=== PATIENT | female | born 1940 ===

== ENCOUNTER 2016-05-19 08:09 | Day surgery (SDC) | payer MEDICARE ==
[2016-05-16 08:28] VITALS: BMI 22.1
[~2016-05-19 08:09] MED LIST: HEPARIN-NS 5,000 UNITS/500 ML 500 ML IV ONE; HYDROmorphone 0.5 mg/0.5 ml ISec ONE; Midazolam 2 MG/2 ML VIAL ONE; Propofol 10 mg/ml Inj (20 ML) ONE; ceFAZolin IV 1 gm in Dextrose 50 ML IVPB ONE
[2016-05-19 09:40] LABS: CALCIUM 8.8 mg/dl (8.6-10.4)
[2016-05-19] MEDS ORDERED: Lidocaine 2% Inj (20ml) ONE (10:11)
[2016-05-19] MEDS ORDERED: Bupivacaine HCl 0.5% PF (10 ml) Inj ONE (10:11)
[2016-05-19] MEDS ORDERED: Sodium Chloride 0.9% 500 ML IV ONE ×3 (10:25→11:55)
[2016-05-19] MEDS ORDERED: Midazolam 2 MG/2 ML VIAL ONE (10:26)
[2016-05-19] MEDS ORDERED: Lidocaine 1% Inj (20ml) ONE (10:37)
[2016-05-19] MEDS ORDERED: Propofol 10 mg/ml Inj (20 ML) ONE (11:04)
[2016-05-19] MEDS ORDERED: Labetalol 25mg/5ml Syringe IVP PRN (12:04)
[2016-05-19] MEDS ORDERED: HYDROmorphone 0.5 mg/0.5 ml ISec IVP PRN (12:04)
--- NOTE | 2016-05-19 12:12 | PCM.SURG1 ---
Surgeon's Initial Post Op Note - Surgeon's Notes Surgeon: Casandra Testing Lead: PGY3 Type of Anesthesia: Block Regional, IV Sedation Pre-Operative Diagnosis: ESRD Operative Findings: see op note Post-Operative Diagnosis: ESRD Operation Performed: L arm AVF creation Specimen/Specimens Removed: N/A Estimated Blood Loss: EBL {In ML}: 30 Blood Products Given: N/A Drains Used: No Drains Post-Op Condition: Good Date of Surgery/Procedure: 05/19/16 Time of Surgery/Procedure: 10:40
[2016-05-19] MEDS ORDERED: Oxycodone/Acetaminophen 5/325 mg Tab PO ONE ×2 (12:13→13:45)
[2016-05-19 15:58] VITALS: BP 135/60; PULSE 72; RESP 16; TEMP 97.1; O2SAT 97
--- NOTE | 2016-05-20 07:58 | OP ---
PROCEDURE DATE: 05/19/2016 PREOPERATIVE DIAGNOSIS: Renal failure. POSTOPERATIVE DIAGNOSIS: Renal failure. PROCEDURE CARRIED OUT: Brachiobasilic fistula, left elbow. SURGEON: Juancarlos Guajardo Jr., MD ENROBING MACHINE FEEDER: Dr. Green. ANESTHESIOLOGIST: Dr. Pinon, supraclavicular block. The patient is a 76-year-old woman recently started on dialysis. OPERATIVE FINDINGS: Initially, it appeared that she had a good cephalic vein at the wrist. However, approximately 3 inches above the wrist, the cephalic vein was occluded at this point. There was no upper arm cephalic vein and the only available vessel for a fistula in the left arm was the basilic v ein, which was of good size and caliber. PROCEDURE: The patient was a supraclavicular block. The vein was marked on the skin with ultrasound guidance. The adjacent artery was palpated. An incision was made between these, the vein mobilized and an end-to-side anastomosis in a spatulated fashion was carried out using loupe magnification and heparin anticoagulation. There was excellent flow through the fistula and there was good pulse at t he wrist at the end of the procedure. Blood loss was approximately 10 mL. Heparin was not reversed at the end. OPERATION CARRIED OUT: Brachiobasilic fistula, left elbow. There is a strong possibility that this may require mobilization in the future to the surface if it cannot be accessed due to the size of her arms. Juancarlos Guajardo Jr., MD cc:Jacob Roberson MD; Kei Levi MD; Kyara Blank MD 56 TT: 05/19/2016 12:27:28 en
== END 2016-05-19 15:25 | disposition home or self-care (01) ==
LOC: C.SDS 08:09
PROVIDERS: ATTEND Surgery Vascular Surgery
DX: N18.6 End stage renal disease (principal); Z99.2 Dependence on renal dialysis
CPT/HCPCS: 36415; 36821; 80048; J0690; J1644; J2250; J2704; J3010; J7030; J7040

== ENCOUNTER 2016-09-22 06:50 | Day surgery (SDC) | payer MEDICARE ==
[2016-09-22 06:31] VITALS: BMI 23.0
[2016-09-22] MEDS ORDERED: HEPARIN-NS 5,000 UNITS/500 ML 5,000 UNIT/500 ML BAG IV ONE (07:22)
[2016-09-22] MEDS ORDERED: ceFAZolin IV 1 gm in Dextrose 1 GM/50 ML BAG IVPB ONE (07:22)
[2016-09-22] MEDS ORDERED: Propofol 10 mg/ml Inj (20 ML) ONE (07:43)
[2016-09-22] MEDS ORDERED: Midazolam 2 MG/2 ML VIAL ONE (07:43)
[2016-09-22] MEDS ORDERED: Sodium Chloride 0.9% 500 ML IV ONE (07:50)
[2016-09-22] MEDS ORDERED: Etomidate 20 mg/10ml Inj IV ONE (07:53)
[2016-09-22 08:12] LABS: CALCIUM 9.9 mg/dl (8.6-10.4)
[2016-09-22] MEDS ORDERED: Papaverine Hydrochloride 30 mg/ml (2ml) ONE (09:08)
[2016-09-22] MEDS ORDERED: Oxycodone/Acetaminophen 5/325 mg Tab PO PRN (09:51)
--- NOTE | 2016-09-22 09:54 | PCM.SURG1 ---
Surgeon's Initial Post Op Note - Surgeon's Notes Surgeon: Dr. Guajardo Tube Worker: Dr. Hermosillo PGY-2 Type of Anesthesia: General Endo Pre-Operative Diagnosis: CKD Operative Findings: see operative report Post-Operative Diagnosis: see operative report Operation Performed: superficialization of left basilic vein, revision of AVF left Specimen/Specimens Removed: none Estimated Blood Loss: EBL {In ML}: 20 Blood Products Given: N/A Drains Used: No Drains Post-Op Condition: Good Date of Surgery/Procedure: 09/22/16 Time of Surgery/Procedure: 09:54
[2016-09-22] MEDS ORDERED: HYDROmorphone 0.5 mg/0.5 ml ISec IVP PRN (11:39)
[2016-09-22 13:47] VITALS: BP 146/52; PULSE 72; RESP 18; TEMP 97.8; O2SAT 98
--- NOTE | 2016-09-23 10:09 | OP ---
PROCEDURE DATE: 09/22/2016 PREOPERATIVE DIAGNOSIS: Immature fistula, left arm. POSTOPERATIVE DIAGNOSIS: Immature fistula, left arm. PROCEDURE CARRIES OUT: Revision of AV fistula with basilic vein transposition elevation. SURGEON: Dr. Guajardo. DENTAL SECRETARY: Dr. Hermosillo. RESIDENT ANESTHESIOLOGIST: Dr. Posada. TYPE OF ANESTHESIA: General anesthesia. INDICATIONS: The patient is an elderly woman on renal insufficiency, on dialysis, presently dialyzed by means of a catheter. She had a fistula created in the left arm, which is of excellent in size. However, this was too deep to be accessed percutaneously. OPERATIVE FINDINGS: The arterialized vein was mobilized from the elbow to the axilla. The subcutaneous tissues were then closed. All branches and tributaries were ligated. Initially, there was a fair amount of spasm, the vein was dissipated with the use of papaverine. An excellent dilatation subsequently. This was then brought into the subcutaneous position with the skin closed on top of it. Blood loss of the procedure was less than 25 mL. Operation carried out is revision of AV fistula of the left arm with basilic vein transposition/elevation. Juancarlos Guajardo Jr., MD cc:
== END 2016-09-22 13:38 | disposition home or self-care (01) ==
LOC: C.SDS 06:50
PROVIDERS: ATTEND Surgery Vascular Surgery
DX: T82.598A Other mechanical complication of other cardiac and vascular devices and implants, initial encounter (principal); N18.6 End stage renal disease
CPT/HCPCS: 36415; 36832; 80048; 86850; 86900; J0690; J2250; J2704; J3010; J7040

== ENCOUNTER 2017-05-16 10:39 | Day surgery (SDC) | payer MEDICARE ==
[2017-05-16 11:49] VITALS: BMI 18.0
[2017-05-16] MEDS ORDERED: Lidocaine 1% PF (5ml) Amp INJ ONE (11:50)
[2017-05-16] MEDS ORDERED: Iohexol 240 200 ML ONE (11:56)
[2017-05-16] MEDS ORDERED: Lidocaine/Epinephrine 1% 1:100000 10 ML IJ ONE (11:56)
[2017-05-16] MEDS ORDERED: HEPARIN-NS 5,000 UNITS/500 ML 5,000 UNIT/500 ML BAG IV ONE (11:57)
[2017-05-16] MEDS ORDERED: Lidocaine Hydrochloride 10 ML INJ ONE (11:57)
[2017-05-16 12:56] LABS: HEMOGLOBIN 9.5 g/dL (11.0-16.0); MEAN CELL VOLUME 91.4 fL (81.0-99.0); MEAN CORPUSCULAR HEMOGLOBIN 30.5 pg (27.0-31.0); MEAN CORPUSCULAR HGB CONC 33.3 g/dL (33.0-37.0); MEAN PLATELET VOLUME 10.2 fL (7.2-11.7); RBC 3.13 Mil/uL (3.80-5.20); RED CELL DISTRIBUTION WIDTH 13.3 % (11.5-14.5); WHITE BLOOD COUNT 4.4 K/uL (4.8-10.8)
[2017-05-16 13:05] LABS: CALCIUM 9.2 mg/dl (8.6-10.4)
[2017-05-16] MEDS ORDERED: Midazolam 2 MG/2 ML VIAL ONE (14:58)
[2017-05-16] MEDS ORDERED: ceFAZolin 1 gm in NS 1 GM/100 ML BAG IVPB ONE (15:01)
[2017-05-16] MEDS ORDERED: Sodium Chloride 0.9% 1,000 ML IV ONE (15:25)
[2017-05-16] MEDS ORDERED: Oxycodone/Acetaminophen 5/325 mg Tab PO PRN (15:29)
--- NOTE | 2017-05-16 15:32 | PCM.SURG1 ---
Surgeon's Initial Post Op Note - Surgeon's Notes Surgeon: Dr. Guajardo Slip Cover Operator: Galina PGY1 Type of Anesthesia: IV Sedation, Local Pre-Operative Diagnosis: Left arm AVF malfunction Operative Findings: See operative report. Perianastamotic stenosis, less than 30 %. Patent AVF Post-Operative Diagnosis: same Operation Performed: Left AV Fistulogram Specimen/Specimens Removed: none Estimated Blood Loss: EBL {In ML}: 3 Blood Products Given: N/A Drains Used: No Drains Post-Op Condition: Good Date of Surgery/Procedure: 05/16/17 Time of Surgery/Procedure: 15:32
[2017-05-16] MEDS ORDERED: HYDROmorphone 0.5 mg/0.5 ml ISec IVP PRN (15:40)
[2017-05-16] MEDS ORDERED: Sodium Chloride 0.9% 1,000 ML IV SCH (15:45)
[2017-05-16 16:35] VITALS: BP 145/72; PULSE 63; RESP 18; TEMP 97; O2SAT 99
--- NOTE | 2017-05-16 16:46 | RAD ---
PROCEDURE: HISTORY: As Above COMPARISON: None TECHNIQUE: Total fluoroscopic time utilized during the procedure: 57.2 seconds. Total dose 4.02 mGy cm squared FINDINGS: Submitted images from the current procedure: Of the 8 spot fluoroscopic images. Please refer to the physician's notes performing the procedure. IMPRESSION: Less than 1 hour fluoroscopic time utilized during performance of the procedure
--- NOTE | 2017-05-17 02:10 | OP ---
PROCEDURE DATE: 05/16/2017 PREOPERATIVE DIAGNOSIS: Malfunctioning fistula, left arm. POSTOPERATIVE DIAGNOSIS: Malfunctioning fistula, left arm. PROCEDURE CARRIED OUT: Fistulogram left arm. SURGEON: Juancarlos Guajardo Jr., MD CONTRACT ADMINISTRATION COORDINATOR: Dr. Piotr Mojica. TYPE OF ANESTHESIA: Local with sedation. ANESTHESIOLOGIST: Teresa INDICATIONS: A 77-year-old woman with difficulty with dialysis access because of problems with of dialysis. Repeat potassium today was 4.4. OPERATIVE FINDINGS: The central veins were widely patent without any evidence of significant stenosis. The entire course of the fistula was widely patent without any significant stenosis. The arterial anastomosis was visualized which was widely patent. There was perhaps 20% to 30% perianastomotic stenosis in the artery in the arterialized vein, adjacent to the arterial anastomosis . The fistula was wide open over 10 mm in diameter and easily accessed. After completion of the fistulogram, no intervention was undertaken. Pressure was applied to the site, and the procedure was terminated. Operation carried out fistulogram, left arm. Findings, all vessels widely opened, it will be used for dialysis. Juancarlos Guajardo Jr., MD cc: Dr. Roberson.
== END 2017-05-16 17:02 | disposition home or self-care (01) ==
LOC: C.SPRAD 10:39
PROVIDERS: ATTEND Surgery Vascular Surgery
DX: T82.41XA Breakdown (mechanical) of vascular dialysis catheter, initial encounter (principal); I12.0 Hypertensive chronic kidney disease with stage 5 chronic kidney disease or end stage renal disease; N18.6 End stage renal disease; Z99.2 Dependence on renal dialysis; G30.9 Alzheimer's disease, unspecified; F02.80 Dementia in other diseases classified elsewhere, unspecified severity, without behavioral disturbance, psychotic disturbance, mood disturbance, and anxiety
CPT/HCPCS: 36415; 36901; 80048; 85027; C1769; C1894; J0690; J1644; J2250; J3010; J7030; J7040; Q9966